=== PATIENT | male | born 1985 | race Caucasian/White ===

== ENCOUNTER 2019-06-04 16:21 | Emergency (ER) | payer BC ==
--- NOTE | 2019-06-04 16:30 | ERPHSYRPT ---
- History of Present Illness Time Seen by Provider: 06/04/19 16:44 Source: patient Exam Limitations: no limitations Physician History: 33 y/o white male with generalized chronic poor dentition. pt states upper middle teeth hurting worse over last 2 days. no fevers. pt does not want any narcotics. he is allergic to penicillin. does not have any knowledge of allergy to Keflex. ENT Location: dental Prearrival Treatment: prescription meds (naproxen) Modifying Factors: Improves With: other (eating chewing) Associated Symptoms: tooth pain Allergies/Adverse Reactions: diphenhydramine [From Benadryl] Allergy (Verified 06/04/19 16:34) Penicillins Allergy (Verified 06/04/19 16:34) - Review of Systems Constitutional: No Symptoms Eyes: No Symptoms Ears, Nose, & Throat: Other (dental pain) Respiratory: No Symptoms Cardiac: No Symptoms Abdominal/Gastrointestinal: No Symptoms Genitourinary Symptoms: No Symptoms Musculoskeletal: No Symptoms Skin: No Symptoms Neurological: No Symptoms Psychological: No Symptoms Endocrine: No Symptoms Hematologic/Lymphatic: No Symptoms Immunological/Allergic: No Symptoms All Other Systems: Reviewed and Negative - Past Medical History Neurological History: No Pertinent History Cardiac History: No Pertinent History Respiratory History: No Pertinent History Endocrine Medical History: No Pertinent History Musculoskeletal History: Other GI Medical History: No Pertinent History History: No Pertinent History Psycho-Social History: No Pertinent History Male Reproductive Disorders: No Pertinent History Other Medical History: ABOUT A YEAR AGO, HAD BACK PAIN WITH SHOOTING PAIN ACROSS BACK WHICH SLOWLY RESOLVED WITHOUT INTERVENTION - Past Surgical History Neuro Surgical History: No Pertinent History Cardiac: No Pertinent History Respiratory: No Pertinent History Gastrointestinal: No Pertinent History Genitourinary: No Pertinent History Musculoskeletal: No Pertinent History Male Surgical History: No Pertinent History - Nursing Vital Signs Nursing Vital Signs: Initial Vital Signs Temperature 98.0 F 06/04/19 16:24 Pulse Rate 82 06/04/19 16:24 Blood Pressure 138/91 06/04/19 16:24 O2 Sat by Pulse Oximetry 97 06/04/19 16:24 Pain Scale Pain Intensity 4 - Physical Exam General Appearance: no apparent distress, alert, anxiety Eye Exam: bilateral eye: normal inspection, PERRL, EOMI Ear Exam: bilateral ear: auricle normal Nasal Exam: normal inspection Throat Exam: dental tenderness (generalized necrotic teeth and gingivitis) Neck Exam: normal inspection, non-tender, supple, full range of motion, trachea midline Cardiovascular/Respiratory Exam: chest non-tender, no respiratory distress Abdominal Exam: non-tender Neurologic Exam: alert, oriented x 3, cooperative, 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, normal mood/affect Skin Exam: normal color, warm, dry SpO2 Interpretation: normal O2 Delivery: Room Air Ordered Tests: Medication Summary Discontinued Medications Generic Name Dose Route Start Last Admin Trade Name Keily PRN Reason Stop Dose Admin Clindamycin HCl 300 mg 06/04/19 16:42 06/04/19 16:44 Cleocin 150 Mg Capsule PO 06/04/19 16:43 300 mg STAT ONE Administration Clindamycin HCl Confirm 06/04/19 16:44 Cleocin 150 Mg Capsule Administered 06/04/19 16:45 Dose 300 mg .ROUTE .STK-MED ONE - Progress Progress: unchanged, pain not gone completely Counseled pt/family regarding: diagnosis, need for follow-up - Departure Departure Disposition: Home Clinical Impression: Dental caries Condition: Stable Critical Care Time: No Referrals: RAGHAV PHILLIPS [Primary Care Provider] - Additional Instructions: use naproxen and tylenol for pain. follow up with dentist for definitive care. Prescriptions: Clindamycin HCl 150 mg [Cleocin 150 mg Capsule] 2 cap PO TID #42 capsule
[2019-06-04 16:34] VITALS: BP 138/91; PULSE 82; O2SAT 97
[2019-06-04] MEDS ORDERED: CLEOCIN 150 MG CAPSULE PO ONE (16:42)
[2019-06-04] MEDS ORDERED: CLEOCIN 150 MG CAPSULE ONE (16:44)
== END 2019-06-04 17:01 | disposition home or self-care (01) ==
LOC: ED 16:21
DX: K02.9 Dental caries, unspecified (principal)
CPT/HCPCS: 99283; A9270-GY

== ENCOUNTER 2019-09-24 10:33 | Emergency (ER) | payer BC ==
[2019-09-24] MEDS ORDERED: Zofran 4 MG/2 ML VIAL IV ONE (11:28)
[2019-09-24] MEDS ORDERED: Sodium Chloride 0.9% 1000 ML 1,000 ML IV STA (11:28)
[2019-09-24 12:09] LABS: Absolute Neutrophil Ct (ANC) 14.61 (1.4-6.9); BASOPHIL % 0.1 % (0.0-0.4); Basophil (Absolute #) 0.02 (0-0.4); Eosinophil % 0.5 % (0.00-5.0); Eosinophil (Absolute #) 0.08 (0-0.5); Hematocrit 46.2 % (42-50); Hemoglobin 15.1 gm/dl (12.5-18.0); Lymphocyte (Absolute #) 0.72 (1.0-4.6); Lymphocytes % 4.4 % (24.0-44.0); Mean Cell Volume 80.6 fl (78-100); Mean Corpuscular Hemoglobin 26.4 pg (26-32); Mean Corpuscular Hgb Concent. 32.7 g/dl (32-36); Mean Platelet Volume 9.2 fl (6-9.5); Monocyte (Absolute #) 0.84 (0.0-1.3); Monocytes % 5.2 % (0.0-12.0); Neutrophil % 89.8 % (36.0-66.0); Platelet Count 346 K/mm3 (150-450); Red Blood Count 5.73 M/mm3 (4.1-5.6); Red Cell Distribution Width 14.7 % (11.5-14.0); White Blood Count 16.3 K/mm3 (4.0-10.5)
[2019-09-24] MEDS ORDERED: Zofran 4 MG/2 ML VIAL ONE (12:09)
[2019-09-24] MEDS ORDERED: Sodium Chloride 0.9% 1000 ML 1,000 ML ONE (12:09)
[2019-09-24 12:21] LABS: ALBUMIN 4.6 g/dL (3.5-5.0); ALKALINE PHOSPHATASE 134 U/L (38-126); AMYLASE 65 U/L (30-110); ANION GAP 13.7 MEQ/L (5-15); BLOOD UREA NITROGEN 18 mg/dL (9-20); CHLORIDE 106 mmol/L (98-107); Calcium 9.8 mg/dL (8.4-10.2); Carbon Dioxide 27 mmol/L (22-30); Glucose 143 mg/dL (74-106); LIPASE 26 U/L (23-300); Potassium 4.3 mmol/L (3.5-5.1); SGOT/AST 34 U/L (17-59); SGPT/ALT 34 U/L (0-50); SODIUM 142 mmol/L (137-145); Total Protein 8.3 g/dL (6.3-8.2)
--- NOTE | 2019-09-24 13:52 | XRAY ---
Indication: Vomiting and diarrhea. 2 views of the abdomen demonstrates nonspecific nonobstructed bowel gas pattern. Solid organs and osseous structures unremarkable. Single PA chest demonstrates normal heart, lungs, and bony thorax with incidental tiny calcified granulomas. Impression: Nonacute nonobstructed abdomen. Normal 1 view chest.
[2019-09-24 14:23] LABS: Amourphous Crystal FEW /HPF (NEGATIVE); Appearance TURBID (CLEAR); Bacteria RARE /HPF (NEGATIVE); Bilirubin NEGATIVE (NEGATIVE); Blood NEGATIVE Ery/ul (0-5); Glucose NEGATIVE (NEGATIVE); Ketones SMALL (NEGATIVE); Leukocyte Esterase NEGATIVE (NEGATIVE); Mucus SLIGHT /HPF (NEGATIVE); Nitrite NEGATIVE (NEGATIVE); Protein,Urine Dip NEGATIVE (Negative); Specific Gravity 1.029 (1.005-1.025); Urobilinogen NEGATIVE mg/dL (0-1)
--- NOTE | 2019-09-24 14:35 | ERPHSYRPT ---
- History of Present Illness Time Seen by Provider: 09/24/19 11:25 Historian: patient, family Exam Limitations: no limitations Patient Subjective Stated Complaint: "I have been vomiting since 5am this morning, I vomited 5-6 times. Diarrhea since 5am also. I have pain in my ribs from vomiting so much. Tried to take anit-diarrheal medication but it hasn't worked." Triage Nursing Assessment: Pt presents to ER with complaints of upper diffused abd pains, diarrhea, and n/v multiple times since approx 5am. Pt is alert and oriented x 3. Ambulates and communicates appropriately. Pt states he believes he has the stomach flu. Lungs clear and resp easy and unlabored. Pt skin pink, warm, and dry. Pt bowel sounds present and normal. Abd soft and tender when palpataing upper quads. Physician History: sudden onset of vomiting at 5 AM repeated liquid stools some chills and sweats no abdominal pain except when he vomits. No history of any surgeries on his abdomen Timing/Duration: today Activities at Onset: none Quality: cramping Abdominal Pain Onset Location: generalized abdomen Pain Radiation: no radiation Modifying Factors: Improves With: nothing Associated Symptoms: diarrhea, fever/chills, nausea, vomiting Previous symptoms: no prior history Allergies/Adverse Reactions: diphenhydramine [From Benadryl] Allergy (Verified 09/24/19 11:20) Penicillins Allergy (Verified 09/24/19 11:20) Hx Tetanus, Diphtheria Vaccination/Date Given: No Hx Influenza Vaccination/Date Given: No Hx Pneumococcal Vaccination/Date Given: No Immunizations Up to Date: No - Review of Systems Constitutional: No Fever, No Chills Eyes: No Symptoms Ears, Nose, & Throat: No Symptoms Respiratory: No Cough, No Dyspnea Cardiac: No Chest Pain, No Edema, No Syncope Abdominal/Gastrointestinal: Abdominal Pain, Nausea, Vomiting, Diarrhea Genitourinary Symptoms: No Dysuria Musculoskeletal: No Back Pain, No Neck Pain Skin: No Rash Neurological: No Dizziness, No Focal Weakness, No Sensory Changes Psychological: No Symptoms Endocrine: No Symptoms All Other Systems: Reviewed and Negative - Past Medical History Pertinent Past Medical History: Yes Neurological History: No Pertinent History Cardiac History: No Pertinent History Respiratory History: No Pertinent History Endocrine Medical History: No Pertinent History Musculoskeletal History: Other GI Medical History: No Pertinent History History: No Pertinent History Psycho-Social History: Depression Male Reproductive Disorders: No Pertinent History Other Medical History: ABOUT A YEAR AGO, HAD BACK PAIN WITH SHOOTING PAIN ACROSS BACK WHICH SLOWLY RESOLVED WITHOUT INTERVENTION - Past Surgical History Past Surgical History: Yes Neuro Surgical History: No Pertinent History Cardiac: No Pertinent History Respiratory: No Pertinent History Gastrointestinal: No Pertinent History Genitourinary: No Pertinent History Musculoskeletal: No Pertinent History Male Surgical History: No Pertinent History Other Surgical History: dental - Social History Smoking Status: Former smoker How long have you smoked: 16 years Exposure to second hand smoke: No Drug Use: none Patient Lives Alone: No - Nursing Vital Signs Nursing Vital Signs: Initial Vital Signs Temperature 97.6 F 09/24/19 11:12 Pulse Rate 101 H 09/24/19 11:12 Respiratory Rate 18 09/24/19 11:12 Blood Pressure 151/83 09/24/19 11:12 O2 Sat by Pulse Oximetry 98 09/24/19 11:12 Pain Scale Pain Intensity 5 - Physical Exam General Appearance: no apparent distress, alert Eye Exam: PERRL/EOMI, eyes nml inspection Ears, Nose, Throat Exam: normal ENT inspection, pharynx normal, moist mucous membranes Neck Exam: normal inspection, non-tender, supple, full range of motion Respiratory Exam: normal breath sounds, lungs clear, No respiratory distress Cardiovascular Exam: regular rate/rhythm, normal heart sounds Gastrointestinal/Abdomen Exam: soft, normal bowel sounds, No tenderness, No mass Back Exam: normal inspection, normal range of motion, No CVA tenderness, No vertebral tenderness Extremity Exam: normal inspection, normal range of motion, pelvis stable Neurologic Exam: alert, oriented x 3, cooperative, normal mood/affect, nml cerebellar function, sensation nml, No motor deficits Skin Exam: normal color, warm, dry SpO2: 100 - Course Nursing assessment & vital signs reviewed: Yes Ordered Tests: Active Orders 24 hr Category Date Time Status OBSTR/ACUTE ABDOMEN SERIES Routine Exams 09/24/19 13:35 Completed AMYLASE Stat Lab 09/24/19 11:28 Completed CBC W DIFF Stat Lab 09/24/19 11:28 Completed CMP Stat Lab 09/24/19 11:28 Completed LIPASE Stat Lab 09/24/19 11:28 Completed Lactic Acid Stat Lab 09/24/19 11:47 Completed UA W/RFX UR CULTURE Stat Lab 09/24/19 11:28 Completed Medication Summary Discontinued Medications Generic Name Dose Route Start Last Admin Trade Name Keily PRN Reason Stop Dose Admin Sodium Chloride 1,000 mls @ 999 mls/hr 09/24/19 11:28 09/24/19 13:22 Sodium Chloride 0.9% 1000 Ml IV 09/24/19 12:28 Infused .Q1H1M STA Infusion Sodium Chloride Confirm 09/24/19 12:09 Sodium Chloride 0.9% 1000 Ml Administered 09/24/19 12:10 Dose 1,000 mls @ ud .ROUTE .STK-MED ONE Ondansetron HCl 4 mg 09/24/19 11:28 09/24/19 12:13 Zofran 4 Mg/2 Ml Vial IV 09/24/19 11:29 4 mg STAT ONE Administration Ondansetron HCl Confirm 09/24/19 12:09 Zofran 4 Mg/2 Ml Vial Administered 09/24/19 12:10 Dose 4 mg .ROUTE .STK-MED ONE Lab/Rad Data: Laboratory Result Diagrams 09/24/19 11:28 09/24/19 11:28 Laboratory Results 09/24/19 09/24/19 09/24/19 Range/Units 11:47 11:28 11:28 WBC 16.3 H (4.0-10.5) K/mm3 RBC 5.73 H (4.1-5.6) M/mm3 Hgb 15.1 (12.5-18.0) gm/dl Hct 46.2 (42-50) % MCV 80.6 (78-100) fl MCH 26.4 (26-32) pg MCHC 32.7 (32-36) g/dl RDW 14.7 H (11.5-14.0) % Plt Count 346 (150-450) K/mm3 MPV 9.2 (6-9.5) fl Gran % 89.8 H (36.0-66.0) % Eos # (Auto) 0.08 (0-0.5) Absolute Lymphs (auto) 0.72 L (1.0-4.6) Absolute Monos (auto) 0.84 (0.0-1.3) Lymphocytes % 4.4 L (24.0-44.0) % Monocytes % 5.2 (0.0-12.0) % Eosinophils % 0.5 (0.00-5.0) % Basophils % 0.1 (0.0-0.4) % Absolute Granulocytes 14.61 H (1.4-6.9) Basophils # 0.02 (0-0.4) Sodium 142 (137-145) mmol/L Potassium 4.3 (3.5-5.1) mmol/L Chloride 106 (98-107) mmol/L Carbon Dioxide 27 (22-30) mmol/L Anion Gap 13.7 (5-15) MEQ/L BUN 18 (9-20) mg/dL Creatinine 0.80 (0.66-1.25) mg/dL Estimated GFR > 60.0 ML/MIN Glucose 143 H (74-106) mg/dL Lactic Acid 1.5 (0.4-2.0) Calcium 9.8 (8.4-10.2) mg/dL Total Bilirubin 0.90 (0.2-1.3) mg/dL AST 34 (17-59) U/L ALT 34 (0-50) U/L Alkaline Phosphatase 134 H (38-126) U/L Serum Total Protein 8.3 H (6.3-8.2) g/dL Albumin 4.6 (3.5-5.0) g/dL Amylase 65 (30-110) U/L Lipase 26 (23-300) U/L Urine Color (YELLOW) Urine Appearance (CLEAR) Urine pH (5-6) Ur Specific [place] (1.005-1.025) Urine Protein (Negative) Urine Ketones (NEGATIVE) Urine Blood (0-5) Brown/ul Urine Nitrite (NEGATIVE) Urine Bilirubin (NEGATIVE) Urine Urobilinogen (0-1) mg/dL Ur Leukocyte Esterase (NEGATIVE) Urine WBC (Auto) (0-5) /HPF Urine RBC (Auto) (0-2) /HPF U Epithel Cells (Auto) (FEW) /HPF Urine Bacteria (Auto) (NEGATIVE) /HPF Amorphous Crystals (NEGATIVE) /HPF Urine Mucus (Auto) (NEGATIVE) /HPF Urine Culture Reflexed (NO) Urine Glucose (NEGATIVE) mg/dL 09/24/ Range/Units 11:28 WBC (4.0-10.5) K/mm3 RBC (4.1-5.6) M/mm3 Hgb (12.5-18.0) gm/dl Hct (42-50) % MCV (78-100) fl MCH (26-32) pg MCHC (32-36) g/dl RDW (11.5-14.0) % Plt Count (150-450) K/mm3 MPV (6-9.5) fl Gran % (36.0-66.0) % Eos # (Auto) (0-0.5) Absolute Lymphs (auto) (1.0-4.6) Absolute Monos (auto) (0.0-1.3) Lymphocytes % (24.0-44.0) % Monocytes % (0.0-12.0) % Eosinophils % (0.00-5.0) % Basophils % (0.0-0.4) % Absolute Granulocytes (1.4-6.9) Basophils # (0-0.4) Sodium (137-145) mmol/L Potassium (3.5-5.1) mmol/L Chloride (98-107) mmol/L Carbon Dioxide (22-30) mmol/L Anion Gap (5-15) MEQ/L BUN (9-20) mg/dL Creatinine (0.66-1.25) mg/dL Estimated GFR ML/MIN Glucose (74-106) mg/dL Lactic Acid (0.4-2.0) Calcium (8.4-10.2) mg/dL Total Bilirubin (0.2-1.3) mg/dL AST (17-59) U/L ALT (0-50) U/L Alkaline Phosphatase (38-126) U/L Serum Total Protein (6.3-8.2) g/dL Albumin (3.5-5.0) g/dL Amylase (30-110) U/L Lipase (23-300) U/L Urine Color YELLOW (YELLOW) Urine Appearance TURBID (CLEAR) Urine pH 5.0 (5-6) Ur Specific [place] 1.029 (1.005-1.025) Urine Protein NEGATIVE (Negative) Urine Ketones SMALL (NEGATIVE) Urine Blood NEGATIVE (0-5) Brown/ul Urine Nitrite NEGATIVE (NEGATIVE) Urine Bilirubin NEGATIVE (NEGATIVE) Urine Urobilinogen NEGATIVE (0-1) mg/dL Ur Leukocyte Esterase NEGATIVE (NEGATIVE) Urine WBC (Auto) NONE (0-5) /HPF Urine RBC (Auto) NONE (0-2) /HPF U Epithel Cells (Auto) NONE (FEW) /HPF Urine Bacteria (Auto) RARE (NEGATIVE) /HPF Amorphous Crystals FEW (NEGATIVE) /HPF Urine Mucus (Auto) SLIGHT (NEGATIVE) /HPF Urine Culture Reflexed NO (NO) Urine Glucose NEGATIVE (NEGATIVE) mg/dL - Progress Progress: improved - Departure Departure Disposition: Home Clinical Impression: Gastroenteritis Condition: Stable Critical Care Time: No Referrals: RAGHAV PHILLIPS [Primary Care Provider] - Prescriptions: Ondansetron HCl [Zofran] 4 mg PO TID PRN #10 tablet PRN Reason: Nausea/Vomiting
[2019-09-24 14:51] VITALS: BP 127/67; PULSE 82; O2SAT 97
[2019-09-24 15:18] LABS: 027 TOX PROD PRESUMPTIVE NEGATIVE (NEGATIVE); TOXIGENIC C. DIFF ORG NEGATIVE (NEGATIVE)
== END 2019-09-24 14:49 | disposition home or self-care (01) ==
LOC: ED 10:33
DX: K52.9 Noninfective gastroenteritis and colitis, unspecified (principal)
CPT/HCPCS: 36415; 74022; 80053; 81001; 82150; 83605; 83690; 85025; 87045; 87046; 87335; 87493; 96360; 96374; 99284; J2405

== ENCOUNTER 2019-10-25 17:15 | Emergency (ER) | payer BC ==
[2019-10-25 18:55] LABS: Absolute Neutrophil Ct (ANC) 2.87 (1.4-6.9); BASOPHIL % 0.2 % (0.0-0.4); Basophil (Absolute #) 0.01 (0-0.4); Eosinophil (Absolute #) 0.05 (0-0.5); Hematocrit 41.3 % (42-50); Hemoglobin 13.6 gm/dl (12.5-18.0); Lymphocyte (Absolute #) 1.08 (1.0-4.6); Lymphocytes % 22.1 % (24.0-44.0); Mean Cell Volume 79.6 fl (78-100); Mean Corpuscular Hemoglobin 26.2 pg (26-32); Mean Corpuscular Hgb Concent. 32.9 g/dl (32-36); Mean Platelet Volume 9.4 fl (6-9.5); Monocyte (Absolute #) 0.87 (0.0-1.3); Monocytes % 17.8 % (0.0-12.0); Neutrophil % 58.9 % (36.0-66.0); Platelet Count 232 K/mm3 (150-450); Red Blood Count 5.19 M/mm3 (4.1-5.6); Red Cell Distribution Width 14.5 % (11.5-14.0); White Blood Count 4.9 K/mm3 (4.0-10.5)
[2019-10-25] MEDS ORDERED: NORCO 7.5/325 MG TAB PO ONE (19:08)
[2019-10-25 19:48] LABS: Group A Strep NEGATIVE (NEGATIVE); INFLUENZA A POSITIVE (NEGATIVE); INFLUENZA B NEGATIVE (NEGATIVE); RESPIRATORY SYNCTIAL VIRUS NEGATIVE (Negative)
[2019-10-25] MEDS ORDERED: Tamiflu 75MG Capsule PO ONE ×2 (20:15→20:18)
--- NOTE | 2019-10-25 21:02 | ERPHSYRPT ---
- History of Present Illness Time Seen by Provider: 10/25/19 17:40 Source: patient Exam Limitations: no limitations Patient Subjective Stated Complaint: Pt states "I had a high fever last night and this morning. I have been feeling light headed and just not feeling well." Triage Nursing Assessment: pt presented alert and oriented X 3, skin pwd pt ambulates with an upright steady gait, able to speak in clear full sentences. Pt slightly tachypneic, able to speak in clear full sentences. Pt in no aparent respiratory distress. Physician History: FLU LIKE S/S FOR THE PAST 2 DAYS POS: EXPOSURE TO FLU AT WORK SITE Timing/Duration: day(s) (2) Cough Quality/Degree: mild Possible Cause: illness exposure Modifying Factors: Improves With: activity, coughing Associated Symptoms: fever, chills, cough, muscle aches, nasal congestion, sore throat International travel in last 2 weeks: No Allergies/Adverse Reactions: diphenhydramine [From Benadryl] Allergy (Verified 09/24/19 11:20) Penicillins Allergy (Verified 09/24/19 11:20) Hx Tetanus, Diphtheria Vaccination/Date Given: No Hx Influenza Vaccination/Date Given: No Hx Pneumococcal Vaccination/Date Given: No Immunizations Up to Date: Yes - Review of Systems Constitutional: Fever, Chills, Fatigue, Malaise Eyes: No Symptoms Ears, Nose, & Throat: Ear Pain, Sinus Drainage, Throat Pain Respiratory: Cough, Dyspnea on Exertion (YUNG) Cardiac: No Symptoms Abdominal/Gastrointestinal: No Symptoms Genitourinary Symptoms: No Symptoms Musculoskeletal: Arthralgias, Myalgias Skin: No Symptoms Neurological: Headache Psychological: No Symptoms Endocrine: No Symptoms Hematologic/Lymphatic: No Symptoms Immunological/Allergic: No Symptoms, Pollen Allergy All Other Systems: Reviewed and Negative - Past Medical History Pertinent Past Medical History: Yes Neurological History: No Pertinent History Cardiac History: No Pertinent History Respiratory History: No Pertinent History Endocrine Medical History: No Pertinent History Musculoskeletal History: Other GI Medical History: No Pertinent History History: No Pertinent History Psycho-Social History: Depression Male Reproductive Disorders: No Pertinent History Other Medical History: ABOUT A YEAR AGO, HAD BACK PAIN WITH SHOOTING PAIN ACROSS BACK WHICH SLOWLY RESOLVED WITHOUT INTERVENTION - Past Surgical History Past Surgical History: Yes Neuro Surgical History: No Pertinent History Cardiac: No Pertinent History Respiratory: No Pertinent History Gastrointestinal: No Pertinent History Genitourinary: No Pertinent History Musculoskeletal: No Pertinent History Male Surgical History: No Pertinent History Other Surgical History: dental - Social History Smoking Status: Former smoker How long have you smoked: 16 years Exposure to second hand smoke: Yes Drug Use: none Patient Lives Alone: No - Nursing Vital Signs Nursing Vital Signs: Initial Vital Signs Temperature 102.4 F 10/25/19 17:22 Pulse Rate 108 H 10/25/19 17:22 Respiratory Rate 20 10/25/19 17:22 Blood Pressure 145/89 10/25/19 17:22 O2 Sat by Pulse Oximetry 98 10/25/19 17:22 Pain Scale Pain Intensity 2 - Physical Exam General Appearance: mild distress Eye Exam: PERRL/EOMI, eyes nml inspection Ears, Nose, Throat Exam: TMs normal, moist mucous membranes, pharyngeal erythema , other (DENTAL: FAIR MULT CARIES MILD PERIODONTAL DZ S/S ) Neck Exam: normal inspection, full range of motion, No meningismus, No mass, No Brudzinski Respiratory Exam: lungs clear, airway intact, No respiratory distress, No diminished breath sounds Cardiovascular Exam: tachycardia (104), No murmur Gastrointestinal/Abdomen Exam: soft, normal bowel sounds, No tenderness, No distention, No mass, No guarding, No rebound Rectal Exam: deferred Back Exam: normal inspection, normal range of motion, No CVA tenderness, No vertebral tenderness Extremity Exam: normal inspection, normal range of motion, pelvis stable, No calf tenderness, No deformities Neurologic Exam: alert, oriented x 3, cooperative, 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, normal mood/affect, sensation nml Skin Exam: normal color, warm, dry, No rash Lymphatic Exam: No adenopathy SpO2: 98 - Course Nursing assessment & vital signs reviewed: Yes Ordered Tests: Active Orders 24 hr Category Date Time Status CBC W DIFF Stat Lab 10/25/19 18:49 Completed Medication Summary Discontinued Medications Generic Name Dose Route Start Last Admin Trade Name Freq PRN Reason Stop Dose Admin Hydrocodone Bitart/Acetaminophen 1 tab 10/25/19 19:08 10/25/19 19:18 [place] 7.5/325 Mg Tab PO 10/25/19 19:09 Not Given STAT ONE Oseltamivir Phosphate 75 mg 10/25/19 20:15 10/25/19 20:20 Tamiflu 75mg Capsule PO 10/25/19 20:16 75 mg STAT ONE Administration Oseltamivir Phosphate Confirm 10/25/19 20:18 Tamiflu 75mg Capsule Administered 10/25/19 20:19 Dose 75 mg PO .STK-MED ONE Lab/Rad Data: Laboratory Result Diagrams 10/25/19 18:49 Laboratory Results 10/25/19 10/25/19 Range/Units 19:15 18:49 WBC 4.9 (4.0-10.5) K/mm3 RBC 5.19 (4.1-5.6) M/mm3 Hgb 13.6 (12.5-18.0) gm/dl Hct 41.3 L (42-50) % MCV 79.6 (78-100) fl MCH 26.2 (26-32) pg MCHC 32.9 (32-36) g/dl RDW 14.5 H (11.5-14.0) % Plt Count 232 (150-450) K/mm3 MPV 9.4 (6-9.5) fl Gran % 58.9 (36.0-66.0) % Eos # (Auto) 0.05 (0-0.5) Absolute Lymphs (auto) 1.08 (1.0-4.6) Absolute Monos (auto) 0.87 (0.0-1.3) Lymphocytes % 22.1 L (24.0-44.0) % Monocytes % 17.8 H (0.0-12.0) % Eosinophils % 1.0 (0.00-5.0) % Basophils % 0.2 (0.0-0.4) % Absolute Granulocytes 2.87 (1.4-6.9) Basophils # 0.01 (0-0.4) Influenza Type A Ag POSITIVE (NEGATIVE) Influenza Type B Ag NEGATIVE (NEGATIVE) RSV (PCR) NEGATIVE (Negative) Group A Strep Antibody NEGATIVE (NEGATIVE) - Progress Progress: improved Blood Culture(s) Obtained: No Antibiotics given: No - Departure Departure Disposition: Home Clinical Impression: Influenza A, Dental caries Condition: Stable Critical Care Time: No Referrals: RAGHAV PHILLIPS [Primary Care Provider] - Prescriptions: Albuterol 8 gm Mdi Hfa [Ventolin Hfa MDI] 8 gm IH Q4H #1 hfa.aer.ad Oseltamivir 75 mg [Tamiflu 75MG Capsule] 75 mg PO BID #10 cap
[2019-10-25 21:14] VITALS: BP 124/72; PULSE 96; O2SAT 95
== END 2019-10-25 21:15 | disposition home or self-care (01) ==
LOC: ED 17:15
DX: J10.1 Influenza due to other identified influenza virus with other respiratory manifestations (principal); K02.9 Dental caries, unspecified
CPT/HCPCS: 36000; 36415; 85025; 87631; 87651; 99284; A9270-GY

== ENCOUNTER 2022-12-04 16:52 | Emergency (ER) | payer SELFPAY ==
--- NOTE | 2022-12-04 17:57 | ERPHSYRPT ---
- History of Present Illness Time Seen by Provider: 12/04/22 17:10 Source: patient Exam Limitations: no limitations Patient Subjective Stated Complaint: PT states "I was training and I hurt my right forearm. I just want to make sure it is not broken." Triage Nursing Assessment: Pt presented alert and oriented X 3, skin pwd. Pt ambulates with an upright steady gait, able to speak in clear full sentences. Pt has tenderness and pain ot his right forearm near the elbow. 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 When he moves that he has pain radiate down the arm forearm from that area. There is no obvious deformity there is no direct blow. There is no other injury. He is only interested in knowing if it is broken or not. Occurred: just prior to arrival Method of Injury: twisted Quality: aching, sharpness Severity of Pain-Max: mild Severity of Pain-Current: mild Extremities Pain Location: forearm: right Modifying Factors: Improves With: movement Allergies/Adverse Reactions: diphenhydramine [From Benadryl] Allergy (Verified 09/24/19 11:20) Penicillins Allergy (Verified 09/24/19 11:20) Hx Tetanus, Diphtheria Vaccination/Date Given: No Hx Influenza Vaccination/Date Given: No Hx Pneumococcal Vaccination/Date Given: No Immunizations Up to Date: Yes Travel Risk - International Travel Have you traveled outside of the country in past 3 weeks: No - Coronavirus Screening Are you exhibiting any of the following symptoms?: No Close contact with a COVID-19 positive Pt in past 14-21 Days: No - Vaccine Status Have you recieved a Covid-19 vaccination: No - Review of Systems Constitutional: No Fever, No Chills Eyes: No Symptoms Ears, Nose, & Throat: No Symptoms Respiratory: No Cough, No Dyspnea Cardiac: No Chest Pain, No Edema, No Syncope Abdominal/Gastrointestinal: No Abdominal Pain, No Nausea, No Vomiting, No Diarrhea Genitourinary Symptoms: No Dysuria Musculoskeletal: Other (There is tenderness over the proximal forearm at approximately the olecranon process. There is no obvious injury and no break in the skin.), No Back Pain, No Neck Pain Skin: No Rash Neurological: No Dizziness, No Focal Weakness, No Sensory Changes Psychological: No Symptoms Endocrine: No Symptoms All Other Systems: Reviewed and Negative - Past Medical History Pertinent Past Medical History: Yes Neurological History: No Pertinent History Cardiac History: No Pertinent History Respiratory History: No Pertinent History Endocrine Medical History: No Pertinent History Musculoskeletal History: Other GI Medical History: No Pertinent History History: No Pertinent History Psycho-Social History: Depression Male Reproductive Disorders: No Pertinent History Other Medical History: ABOUT A YEAR AGO, HAD BACK PAIN WITH SHOOTING PAIN ACROSS BACK WHICH SLOWLY RESOLVED WITHOUT INTERVENTION - Past Surgical History Past Surgical History: Yes Neuro Surgical History: No Pertinent History Cardiac: No Pertinent History Respiratory: No Pertinent History Gastrointestinal: No Pertinent History Genitourinary: No Pertinent History Musculoskeletal: No Pertinent History Male Surgical History: No Pertinent History Other Surgical History: dental - Social History Smoking Status: Former smoker How long have you smoked: 16 years Exposure to second hand smoke: Yes Drug Use: none Patient Lives Alone: No - Nursing Vital Signs Nursing Vital Signs: Initial Vital Signs Temperature 97.5 F 12/04/22 16:57 Pulse Rate 92 H 12/04/22 16:57 Respiratory Rate 20 12/04/22 16:57 Blood Pressure 137/85 12/04/22 16:57 O2 Sat by Pulse Oximetry 99 12/04/22 16:57 Pain Scale Pain Intensity 5 - Physical Exam General Appearance: mild distress, alert Eyes, Ears, Nose, Throat Exam: moist mucous membranes Neck Exam: non-tender, supple Cardiovascular/Respiratory Exam: chest non-tender, normal breath sounds, regular rate/rhythm, no respiratory distress Abdominal Exam: non-tender, No guarding Back Exam: normal inspection, No vertebral tenderness Shoulder Exam: normal inspection Elbow/Forearm Exam: normal ROM, bone tenderness, soft tissue tenderness, No swelling Wrist Exam: normal inspection Hand Exam: normal inspection Neuro/Tendon Exam: normal sensation, normal motor functions Mental Status Exam: alert, oriented x 3, cooperative Skin Exam: normal color, warm, dry SpO2: 99 - Course Nursing assessment & vital signs reviewed: Yes - Radiology Exams Right Elbow X-ray Interpretation: Interpreted by me, Negative (Negative for fracture dislocation no soft tissue swelling appreciated) Ordered Tests: Active Orders 24 hr Category Date Time Status ELBOW (MINIMUM 3 VIEWS) Stat Exams 12/04/22 17:02 Taken - Progress Progress: unchanged - Departure Departure Disposition: Home Clinical Impression: Strain of right elbow Condition: Stable Critical Care Time: No Referrals: DOCTOR,NO FAMILY [Primary Care Provider] - Follow up/PCP as directed
[2022-12-04 18:03] VITALS: BP 137/72; PULSE 88; O2SAT 98
--- NOTE | 2022-12-04 20:21 | XRAY ---
Indication: Pain. Comparison: None 3 view right elbow obtained. No bony, articular, or soft tissue abnormalities.
== END 2022-12-04 18:27 | disposition home or self-care (01) ==
LOC: ED 16:52
DX: S56.911A Strain of unspecified muscles, fascia and tendons at forearm level, right arm, initial encounter (principal); X50.9XXA Other and unspecified overexertion or strenuous movements or postures, initial encounter; Y93.75 Activity, martial arts; Z28.310 Unvaccinated for COVID-19
CPT/HCPCS: 73080; 99282

== ENCOUNTER 2023-06-22 19:32 | Emergency (ER) | payer BC ==
[2023-06-22] MEDS ORDERED: TORAdol 30 mg Injection ONE (21:08)
[2023-06-22] MEDS: TORAdol 30 mg Injection IM ONE ×2 (21:09→21:22)
--- NOTE | 2023-06-22 22:05 | ERPHSYRPT ---
- History of Present Illness Time Seen by Provider: 06/22/23 21:15 Source: patient Exam Limitations: no limitations Patient Subjective Stated Complaint: pt states that he has been moving a house this week. Triage Nursing Assessment: pt ambulated into the er; pt is axo x4; c/o back pain; pt states 5/10 pain to lumbar; skin is PDW; tenderness to lower back; no deformity or bruising present to back; no respiratory distress present; hypertensive Physician History: Patient is a 37-year-old white male who presents with low back pain radiating into both lower extremities after moving furniture for several days. He does have a history of sciatica. But this pain is much worse. He has had x-rays in the past but has never had a CT or an MRI. Timing/Duration: today Method of Injury: lifting Quality: radiating, cramping, stabbing Back Pain Location: lumbar spine Back Pain Radiation: upper legs Severity of Pain-Max: moderate Severity of Pain-Current: moderate Modifying Factors: Improves With: movement Associated Symptoms: denies symptoms Previous symptoms: same symptoms as today Allergies/Adverse Reactions: diphenhydramine [From Benadryl] Allergy (Verified 06/22/23 20:59) Penicillins Allergy (Verified 06/22/23 20:59) Hx Tetanus, Diphtheria Vaccination/Date Given: No Hx Influenza Vaccination/Date Given: No Hx Pneumococcal Vaccination/Date Given: No Travel Risk - International Travel Have you traveled outside of the country in past 3 weeks: No - Coronavirus Screening Are you exhibiting any of the following symptoms?: No Close contact with a COVID-19 positive Pt in past 14-21 Days: No - Vaccine Status Have you recieved a Covid-19 vaccination: No - Review of Systems Constitutional: No Fever, No Chills Eyes: No Symptoms Ears, Nose, & Throat: No Symptoms Respiratory: No Cough, No Dyspnea Cardiac: No Chest Pain, No Edema, No Syncope Abdominal/Gastrointestinal: No Abdominal Pain, No Nausea, No Vomiting, No Diarrhea Genitourinary Symptoms: No Dysuria Musculoskeletal: Back Pain, No Neck Pain Skin: No Rash Neurological: No Dizziness, No Focal Weakness, No Sensory Changes Psychological: No Symptoms Endocrine: No Symptoms All Other Systems: Reviewed and Negative - Past Medical History Pertinent Past Medical History: Yes Neurological History: No Pertinent History Cardiac History: No Pertinent History Respiratory History: No Pertinent History Endocrine Medical History: No Pertinent History Musculoskeletal History: Other GI Medical History: No Pertinent History History: No Pertinent History Psycho-Social History: Depression Male Reproductive Disorders: No Pertinent History Other Medical History: ABOUT A YEAR AGO, HAD BACK PAIN WITH SHOOTING PAIN ACROSS BACK WHICH SLOWLY RESOLVED WITHOUT INTERVENTION - Past Surgical History Past Surgical History: Yes Neuro Surgical History: No Pertinent History Cardiac: No Pertinent History Respiratory: No Pertinent History Gastrointestinal: No Pertinent History Genitourinary: No Pertinent History Musculoskeletal: No Pertinent History Male Surgical History: No Pertinent History Other Surgical History: dental - Social History Smoking Status: Former smoker How long have you smoked: 16 years Exposure to second hand smoke: No Drug Use: none Patient Lives Alone: No - Nursing Vital Signs Nursing Vital Signs: Initial Vital Signs Temperature 98.7 F 06/22/23 21:02 Pulse Rate 85 06/22/23 21:02 Respiratory Rate 16 06/22/23 21:02 Blood Pressure 148/84 06/22/23 21:02 O2 Sat by Pulse Oximetry 100 06/22/23 21:02 Pain Scale Pain Intensity [Lower Back] 5 Pain Intensity 5 - Physical Exam General Appearance: mild distress Eye Exam: PERRL/EOMI Ears, Nose, Throat Exam: normal ENT inspection Neck Exam: normal inspection, non-tender, supple Respiratory Exam: airway intact, No respiratory distress Back Exam: decreased range of motion, point tenderness (Lumbar area) Extremity Exam: normal inspection, normal range of motion Neurologic Exam: alert, oriented x 3, cooperative Skin Exam: normal color, warm, dry SpO2 Interpretation: normal SpO2: 100 O2 Delivery: Room Air - Course Nursing assessment & vital signs reviewed: Yes - CT Exams Lumbar Spine CT Interpretation: Other (Reviewed by me. Radiologist report of broad-spectrum based bulging disc at L5-S1. Recommend MRI) Ordered Tests: Active Orders 24 hr Category Date Time Status LUMBAR SPINE W/O [CT] Stat Exams 06/22/23 21:15 Taken Medication Summary Discontinued Medications Generic Name Dose Route Start Last Admin Trade Name Freq PRN Reason Stop Dose Admin Ketorolac Tromethamine 60 mg 06/22/23 21:05 06/22/23 21:22 Ketorolac Tromethamine 30 Mg/Ml Inj IM 06/22/23 21:06 Not Given STAT ONE Ketorolac Tromethamine Confirm 06/22/23 21:08 Ketorolac Tromethamine 30 Mg/Ml Inj Administered 06/22/23 21:09 Dose 60 mg .ROUTE .STK-MED ONE - Progress Progress: unchanged Medical Desision Making - Diagnostic Testing Radiological Interpretation: Reviewed by me - Risk of complications Low Risk: Low risk of morbidity from additional dx testing or treatment - Departure Departure Disposition: Home Clinical Impression: Lumbar radiculopathy Condition: Stable Critical Care Time: No Referrals: CELESTE FISH MD [Primary Care Provider] - Follow up/PCP as directed Instructions: Low Back Pain (DC), Sciatica (DC) Prescriptions: Methylprednisolone Packet [Medrol Dosepack] 4 mg PO UD #1 packet Oxycodone HCl/Acetaminophen [Percocet 5-325 mg Tablet] 1 each PO Q6H 3 Days #12 tablet MDD 4
[2023-06-22 22:06] VITALS: BP 148/84; PULSE 85; RESP 16; TEMP 98.7; O2SAT 100
[2023-06-22] MEDS ORDERED: NORCO 5/325 MG PO ONE (22:09)
[2023-06-22] MEDS ORDERED: NORCO 5/325 MG ONE (22:10)
--- NOTE | 2023-06-23 08:46 | XRAY ---
Indication: Low back pain. Multiple contiguous axial images obtained through the lumbar spine. Sagittal and coronal reformatted images obtained. Comparison: None Axial images demonstrates mild broad-based disc osteophyte complex at L5-S1 level and lesser minimal broad-based disc bulge at L4-L5 level. No acute fracture, suspicious bony lesions, or spinal canal stenosis. Facets are symmetric. Sagittal and coronal reformatted images demonstrates normal lumbar alignment with mild L5-S1 disc space narrowing. No acute compression fracture. Visualized noncontrasted soft tissues are unremarkable. Impression: L4-S1 broad-based disc bulge better evaluated with outpatient MRI. Remaining CT lumbar spine is negative.
== END 2023-06-22 22:21 | disposition home or self-care (01) ==
LOC: ED 19:32
DX: M54.16 Radiculopathy, lumbar region (principal); Z79.891 Long term (current) use of opiate analgesic; Z79.52 Long term (current) use of systemic steroids; Z28.310 Unvaccinated for COVID-19
CPT/HCPCS: 72131; 99282; J1885; A9270-GY